=== PATIENT | male | born 1995 | race Caucasian/White ===

== ENCOUNTER 2023-05-30 09:47 | Outpatient (CLI) | payer OTHER, SELFPAY | END 2023-05-30 09:48 | disposition home or self-care (01) | PROVIDERS: PCP Family Medicine; Visit Provider Family Medicine | DX: Z00.00 Encounter for general adult medical examination without abnormal findings (principal); Z13.6 Encounter for screening for cardiovascular disorders; Z13.9 Encounter for screening, unspecified | CPT/HCPCS: 80048; 80061; 85025 ==